=== PATIENT | female | born 2005 | race Caucasian/White ===

== ENCOUNTER 2023-08-06 21:48 | Inpatient (IN) | payer MEDICAID ==
[~2023-08-06] VITALS: Ht 175.3 cm; Wt 67.7 kg
[2023-08-06 22:47] LABS: BILIRUBIN,URINE NEGATIVE (Neg); CLARITY,URINE SLIGHTLY CLOUDY (Clear); COLOR,URINE YELLOW (Yellow); GLUCOSE, URINE NEGATIVE (Neg); KETONES,URINE TRACE mg/dl (Neg); LEUKOCYTE ESTERASE ,URINE NEGATIVE (Neg); NITRITES, URINE NEGATIVE (Neg); OCCULT BLOOD,URINE SMALL (Neg); PROTEIN,URINE NEGATIVE (Neg); UROBILINOGEN,URINE 0.2 E.U/dL (0.2-1.0)
[2023-08-06 22:48] LABS: URINE HCG NEGATIVE (NEG)
[2023-08-06 22:55] LABS: UA COLLECTION TYPE VOIDED
[2023-08-06 22:56] LABS: SQUAMOUS EPITHELIAL CELL,UR MANY /LPF (FEW)
[2023-08-06 22:57] LABS: BACTERIA,URINE 2+ /HPF (Neg); WBC,URINE 0-4 /HPF (0-4)
[2023-08-06 23:01] LABS: URINE AMPHETAMINE SCREEN NEGATIVE (Neg); URINE BARBITUATE SCREEN NEGATIVE (Neg); URINE BENZODIAZEPINES SCREEN NEGATIVE (Neg); URINE CANNABINOID SCREEN NEGATIVE (Neg); URINE COCAINE SCREEN NEGATIVE (Neg); URINE METHADONE SCREEN NEGATIVE (Neg); URINE OPIATE SCREEN NEGATIVE (Neg); URINE PHENCYCLIDINE SCREEN NEGATIVE (Neg)
[2023-08-06 23:25] LABS: BASOPHILS % (AUTO) 0.6 % (0-1); EOSINOPHILS # (AUTO) 0.1 X10'3 (0-0.9); EOSINOPHILS % (AUTO) 1.2 % (0-6); HEMATOCRIT 40.2 % (35.0-45.0); HEMOGLOBIN 13.6 g/dl (12.0-16.0); LYMPHOCYTES # (AUTO) 1.8 X10'3 (1.1-4.8); LYMPHOCYTES % (AUTO) 30.9 % (21-51); MEAN CORPUSCULAR HGB CONC 33.8 g/dL (33.0-36.5); MEAN CORPUSCULAR VOLUME 94.6 FL (78-98); MONOCYTES # (AUTO) 0.5 X10'3 (0-0.9); MONOCYTES % (AUTO) 8.3 % (2-12); NEUTROPHILS # (AUTO) 3.5 X10'3 (1.8-7.7); PLATELET COUNT 215 X10'3 (140-440); RED BLOOD COUNT 4.25 X10'6 (4.20-5.60); WHITE BLOOD COUNT 5.9 X10'3 (4.5-11.0)
[2023-08-06 23:53] LABS: ALBUMIN 3.8 G/DL (3.4-5.0); ANION GAP 9 (8-16); BLOOD UREA NITROGEN 9 MG/DL (7-18); CALCIUM 8.6 MG/DL (8.5-10.1); CHLORIDE 106 MMOL/L (99-107); CREATININE 0.82 MG/DL (0.40-0.90); ETHANOL < 10 MG/DL (<10); GLUCOSE 96 MG/DL (70-104); POTASSIUM 3.2 MMOL/L (3.5-5.1); SODIUM 142 MMOL/L (135-145); THYROID STIMULATING HORMONE 3.08 ulU/ml (0.34-4.50); TOTAL CARBON DIOXIDE 26.8 MMOL/L (24-32); eCRCL 95 ML/MIN; eGFR 89 ML/MIN
[2023-08-07] MEDS ORDERED: BUPR-317 PO (11:17)
[2023-08-07] MEDS ORDERED: LAMO25TA5 PO (11:17)
[2023-08-07] MEDS ORDERED: BUSP7.5T5 PO (11:17)
[2023-08-07] MEDS ORDERED: DICL100G59 TOP (11:17)
[2023-08-07] MEDS: nicotine 21mg patch - 24 hr TD STA (11:37)
[2023-08-07] MEDS ORDERED: DICLOFENAC SODIUM 1% gel 1 APPLIC APPLIC TP SCH (11:50)
[2023-08-07] MEDS ORDERED: loperamide 2mg capsule PO PRN (16:15)
[2023-08-07] MEDS ORDERED: mag hydrox/Alum hydrox/simeth 30ml oral suspension PO PRN (16:15)
[2023-08-07] MEDS ORDERED: magnesium hydroxide 30ml (MOM) UD suspension PO PRN (16:15)
[2023-08-07] MEDS ORDERED: acetaminophen 325mg tablet PO PRN (16:15)
[2023-08-07 16:30] VITALS: BP 112/75; PULSE 79; RESP 16; TEMP 99.8; O2SAT 99
[2023-08-07 16:57] VITALS: RESP 16; O2SAT 99
[2023-08-07 19:36] VITALS: BP 110/67; PULSE 65; RESP 18; TEMP 98.1; O2SAT 100
[2023-08-08 07:20] VITALS: RESP 16; O2SAT 100
[2023-08-08] MEDS: lamoTRIgine 25mg tablet PO SCH (07:25)
[2023-08-08] MEDS: nicotine 21mg patch - 24 hr TD SCH (07:26)
[2023-08-08] MEDS: busPIRone 15mg tablet PO SCH (07:26)
[2023-08-08] MEDS: buPROPion SR 150mg tablet PO SCH (07:33)
[2023-08-08 07:57] LABS: CHOL/HDL RATIO 1.9 (0.00-4.99); CHOLESTEROL 119 MG/DL (0-200); HDL CHOLESTEROL 63 MG/DL (35-60); LDL CHOLESTEROL 47 MG/DL (50-100); TRIGLYCERIDES 42 MG/DL (20-135)
[2023-08-08 08:00] VITALS: BP 106/75; PULSE 85; RESP 16; TEMP 98.1; O2SAT 100
[2023-08-08 08:15] LABS: HEMOGLOBIN A1C 5.1 % (4.5-6.2)
[2023-08-08] MEDS: LORazepam 0.5 MG tablet PO PRN (12:01)
[2023-08-08] MEDS ORDERED: acetaminophen 325mg tablet PO PRN ×2 (12:45)
[2023-08-08] MEDS ORDERED: morphine 2 MG/ML inj. syringe IV PRN (12:45)
[2023-08-08] MEDS ORDERED: metoclopramide 5 mg/ml inj IV PRN (12:45)
[2023-08-08] MEDS ORDERED: ondansetron 4mg rapidly disintigrating tab PO PRN (12:45)
[2023-08-08] MEDS ORDERED: ondansetron/PF 4mg/2ml inj IV PRN (12:45)
[2023-08-08] MEDS ORDERED: diphenhydrAMINE 25mg capsule PO PRN (12:45)
[2023-08-08] MEDS ORDERED: HYDROcodone/acetaminophen 5mg/325mg tablet PO PRN (12:45)
[2023-08-08] MEDS ORDERED: mag hydrox/Alum hydrox/simeth 30ml oral suspension PO PRN (12:45)
[2023-08-08] MEDS ORDERED: magnesium hydroxide 30ml (MOM) UD suspension PO PRN (12:45)
[2023-08-08] MEDS ORDERED: potassium Cl 20 mEq SR tablet PO PRN ×2 (12:45)
[2023-08-08] MEDS ORDERED: diphenhydrAMINE 50 mg/ml inj IV PRN (12:45)
[2023-08-08] MEDS ORDERED: ringers solution, lacted 1,000 ML IV ONE (13:00)
[2023-08-08 13:52] LABS: MAGNESIUM 2.1 MG/DL (1.5-2.4); PHOSPHORUS 5.1 MG/DL (2.3-4.5); POTASSIUM 4.3 MMOL/L (3.5-5.1); PRO BRAIN NATRIURETIC PEPTIDE 113 PG/ML (0-125)
[2023-08-08 19:00] VITALS: RESP 21; O2SAT 100
[2023-08-08 19:33] VITALS: BP 106/75; PULSE 84; RESP 21; TEMP 97.8; O2SAT 100
[2023-08-08 19:40] VITALS: BP 110/71; PULSE 84; RESP 21; TEMP 97.8; O2SAT 100
[2023-08-08] MEDS: K and/or MAG REPLACEMENT MC SCH (20:00)
[2023-08-08] MEDS: traZODone 50mg tablet PO PRN (20:39)
[2023-08-08] MEDS: docusate sod 100mg capsule PO SCH (20:39)
[2023-08-08] MEDS ORDERED: temazepam 15mg capsule PO PRN (21:00)
[2023-08-09 07:25] VITALS: RESP 16; O2SAT 99
[2023-08-09] MEDS: acetaminophen 325mg tablet PO PRN (07:38)
[2023-08-09 08:00] VITALS: BP 98/64; PULSE 82; RESP 12; TEMP 99.1; O2SAT 99
[2023-08-09] MEDS: buPROPion SR 100mg tab PO SCH (14:14)
[2023-08-09] MEDS: ibuprofen 200mg tablet PO PRN (17:04)
[2023-08-09] MEDS: LORazepam 1 MG tablet PO ONE (17:55)
[2023-08-09 19:00] VITALS: RESP 18; O2SAT 100
[2023-08-09 20:23] VITALS: BP 105/60; PULSE 88; RESP 18; TEMP 98.7; O2SAT 100
[2023-08-09] MEDS: traZODone 50mg tablet PO PRN (21:23)
[2023-08-10 07:00] VITALS: BP 111/68; PULSE 93; RESP 16; TEMP 98; O2SAT 99
[2023-08-10] MEDS: busPIRone 15mg tablet PO SCH (08:05)
[2023-08-10 08:42] LABS: APTT 27 SECONDS (22-32); PROTHROMBIN TIME 10.9 SECONDS (9.0-12.0)
[2023-08-10 08:53] LABS: MAGNESIUM 1.8 MG/DL (1.5-2.4); POTASSIUM 4.2 MMOL/L (3.5-5.1)
[2023-08-10] MEDS: LORazepam 1 MG tablet PO ONE (09:59)
[2023-08-10 19:00] VITALS: BP 123/69; PULSE 94; RESP 16; TEMP 98; O2SAT 98
[2023-08-11 07:00] VITALS: RESP 16; O2SAT 99
[2023-08-11 08:00] VITALS: BP 96/58; PULSE 92; RESP 16; TEMP 98.8; O2SAT 99
[2023-08-11 10:12] LABS: ALBUMIN 3.7 G/DL (3.4-5.0); ANION GAP 7 (8-16); BLOOD UREA NITROGEN 8 MG/DL (7-18); BUN/CREATININE RATIO 10.3 (10.0-20.0); CALCIUM 9.2 MG/DL (8.5-10.1); CHLORIDE 107 MMOL/L (99-107); CREATININE 0.78 MG/DL (0.40-0.90); GLUCOSE 73 MG/DL (70-104); MAGNESIUM 1.9 MG/DL (1.5-2.4); POTASSIUM 4.2 MMOL/L (3.5-5.1); SODIUM 143 MMOL/L (135-145); TOTAL CARBON DIOXIDE 29.4 MMOL/L (24-32); eCRCL 116 ML/MIN; eGFR > 90 ML/MIN
[2023-08-11] MEDS: LORazepam 1 MG tablet PO ONE (13:08)
[2023-08-11 19:00] VITALS: RESP 16; O2SAT 100
[2023-08-11 19:30] VITALS: BP 104/68; PULSE 93; RESP 16; TEMP 99.9; O2SAT 100
[2023-08-11] MEDS: busPIRone 15mg tablet PO SCH (20:32)
[2023-08-11] MEDS: LORazepam 0.5 MG tablet PO PRN (20:32)
[2023-08-11 20:38] VITALS: RESP 16; O2SAT 100
[2023-08-12 07:00] VITALS: RESP 16; O2SAT 98
[2023-08-12 07:30] VITALS: BP 96/57; PULSE 90; RESP 16; TEMP 98.8; O2SAT 98
[2023-08-12] MEDS: lithium carbonate 150mg capsule PO SCH (08:37)
[2023-08-12 09:38] LABS: MAGNESIUM 1.8 MG/DL (1.5-2.4)
[2023-08-12] MEDS: hydrOXYzine 25 MG tablet PO PRN (11:28)
[2023-08-12] MEDS: LIDOcaine 5% patch TP SCH (13:53)
[2023-08-12 19:10] VITALS: BP 110/61; PULSE 91; RESP 16; TEMP 97.1; O2SAT 100
[2023-08-12] MEDS: busPIRone 15mg tablet PO SCH (20:44)
[2023-08-12] MEDS: traZODone 50mg tablet PO ONE (22:25)
[2023-08-13 07:00] VITALS: RESP 16; O2SAT 98
[2023-08-13 08:00] VITALS: BP 100/47; PULSE 75; RESP 16; TEMP 99.4; O2SAT 98
[2023-08-13] MEDS ORDERED: buPROPion SR 100mg tab PO SCH (08:00)
[2023-08-13] MEDS: buPROPion SR 150mg tablet PO SCH (08:31)
[2023-08-13] MEDS: busPIRone 5mg tablet PO SCH (08:31)
[2023-08-13] MEDS: LORazepam 1 MG tablet PO ONE ×2 (11:26→21:17)
[2023-08-13 19:30] VITALS: BP 115/65; PULSE 102; RESP 17; TEMP 98.7; O2SAT 99
[2023-08-13] MEDS: traZODone 50mg tablet PO PRN (20:19)
[2023-08-13] MEDS: LORazepam 0.5 MG tablet PO PRN (20:23)
[2023-08-14 07:00] VITALS: RESP 16; O2SAT 99
[2023-08-14 08:00] VITALS: BP 102/64; PULSE 74; RESP 12; TEMP 98.7; O2SAT 98
[2023-08-14] MEDS: lamoTRIgine 100mg tablet PO SCH (08:59)
[2023-08-14] MEDS: lithium carbonate 150mg capsule PO SCH (08:59)
[2023-08-14] MEDS: NICOTINE POLACRILEX 2 MG LOZENGE BC PRN (09:06)
[2023-08-14 19:00] VITALS: BP 111/76; PULSE 99; RESP 16; TEMP 97.6; O2SAT 100
[2023-08-14] MEDS: LORazepam 1 MG tablet PO ONE (20:45)
[2023-08-14] MEDS: traZODone 150mg tablet PO ONE (22:13)
[2023-08-15 07:00] VITALS: RESP 16; O2SAT 96
[2023-08-15 07:30] VITALS: BP 98/57; PULSE 66; RESP 16; TEMP 98.9; O2SAT 96
[2023-08-15 19:00] VITALS: RESP 18; O2SAT 100
[2023-08-15 20:00] VITALS: BP 112/68; PULSE 105; RESP 18; TEMP 97.8; O2SAT 100
[2023-08-15 20:04] VITALS: RESP 18; O2SAT 100
[2023-08-15] MEDS: traZODone 150mg tablet PO PRN (21:37)
[2023-08-16 08:00] VITALS: BP 101/62; PULSE 80; RESP 16; TEMP 98.4; O2SAT 96
[2023-08-16] MEDS: buPROPion SR 150mg tablet PO SCH (08:24)
[2023-08-16 19:00] VITALS: BP 102/58; PULSE 110; RESP 20; TEMP 98.7; O2SAT 99
[2023-08-17 07:00] VITALS: BP 90/47; PULSE 69; RESP 16; TEMP 99.3; O2SAT 98
[2023-08-17] MEDS: multivitamins, therapeutics tablet PO SCH (07:59)
[2023-08-17] MEDS: buPROPion 100mg tablet PO SCH (08:00)
[2023-08-17] MEDS: busPIRone 5mg tablet PO SCH (13:45)
[2023-08-17] MEDS: hydrOXYzine 25 MG tablet PO PRN (18:29)
[2023-08-17 19:35] VITALS: BP 123/71; PULSE 79; RESP 16; TEMP 97.9; O2SAT 99
[2023-08-18 07:00] VITALS: BP 90/56; PULSE 91; RESP 12; TEMP 98.9; O2SAT 99
[2023-08-18 19:00] VITALS: BP 95/57; PULSE 100; RESP 20; TEMP 99.6; O2SAT 99
[2023-08-19 07:00] VITALS: BP 102/66; PULSE 76; RESP 16; TEMP 97.8; O2SAT 96
[2023-08-19 19:00] VITALS: RESP 12; O2SAT 99
[2023-08-19] MEDS: busPIRone 5mg tablet PO SCH (20:10)
[2023-08-19 20:46] VITALS: BP 107/61; PULSE 80; RESP 12; TEMP 98.3; O2SAT 99
[2023-08-20 07:00] VITALS: RESP 16; O2SAT 97
[2023-08-20 08:00] VITALS: BP 93/57; PULSE 78; RESP 16; TEMP 98.8; O2SAT 97
[2023-08-20 10:30] LABS: ALBUMIN 3.6 G/DL (3.4-5.0); ANION GAP 12 (8-16); BLOOD UREA NITROGEN 9 MG/DL (7-18); BUN/CREATININE RATIO 9.6 (10.0-20.0); CALCIUM 8.9 MG/DL (8.5-10.1); CHLORIDE 104 MMOL/L (99-107); CREATININE 0.94 MG/DL (0.40-0.90); GLUCOSE 103 MG/DL (70-104); POTASSIUM 4.2 MMOL/L (3.5-5.1); SODIUM 142 MMOL/L (135-145); TOTAL CARBON DIOXIDE 26.2 MMOL/L (24-32); eCRCL 99 ML/MIN; eGFR 76 ML/MIN
[2023-08-20 19:00] VITALS: RESP 16; O2SAT 100
[2023-08-20 19:12] VITALS: BP 107/71; PULSE 73; RESP 16; TEMP 99.1; O2SAT 100
[2023-08-21 07:00] VITALS: BP 91/47; PULSE 79; RESP 16; TEMP 98.2; O2SAT 99
[2023-08-21] MEDS: ESCITALOPRAM 10 mg tablet 10 MG TABLET PO SCH (07:39)
[2023-08-21 19:00] VITALS: BP 103/72; PULSE 86; RESP 14; TEMP 98.8; O2SAT 100
[2023-08-22 07:30] VITALS: BP 98/55; PULSE 80; RESP 12; TEMP 97.8; O2SAT 98
[2023-08-22 19:46] VITALS: BP 113/68; PULSE 83; RESP 18; TEMP 98.5; O2SAT 100
[2023-08-23 07:00] VITALS: BP 96/52; PULSE 74; RESP 12; TEMP 98.3; O2SAT 97
[2023-08-23 19:00] VITALS: RESP 12; O2SAT 99
[2023-08-23 19:57] VITALS: BP 107/68; PULSE 99; RESP 12; TEMP 99.2; O2SAT 97
[2023-08-24 07:00] VITALS: RESP 16; O2SAT 96
[2023-08-24 08:00] VITALS: PULSE 83; RESP 16; TEMP 98.8; O2SAT 96
[2023-08-24] MEDS ORDERED: MULT-25 PO (14:04)
[2023-08-24] MEDS ORDERED: HYDR-3686 PO (14:04)
[2023-08-24] MEDS ORDERED: DOCU100C40 PO (14:04)
[2023-08-24] MEDS ORDERED: BUSP15TA7 PO (14:04)
[2023-08-24] MEDS ORDERED: DICL20GE TP (14:04)
[2023-08-24] MEDS ORDERED: BUPR200T27 PO (14:04)
[2023-08-24] MEDS ORDERED: ESCI5TAB17 PO (14:04)
[2023-08-24] MEDS ORDERED: LIT300C PO (14:04)
[2023-08-24] MEDS ORDERED: LAMO100T PO (14:04)
[2023-08-24] MEDS ORDERED: NICO-687 TD (14:04)
[2023-08-24] MEDS ORDERED: Lorazepam PO (14:04)
[2023-08-24] MEDS ORDERED: TRAZ-251 PO (14:04)
[2023-08-24] MEDS ORDERED: LORA-268 PO (14:06)
== END 2023-08-24 15:15 | disposition home or self-care (01) | DRG 751 ==
LOC: ER 21:48 → ED HOLD 08-07 12:00 → ADULT MH 08-07 16:08
PROVIDERS: ADMIT Psychiatry & Neurology Psychiatry; ATTEND Psychiatry & Neurology Psychiatry
PROC: GZHZZZZ Group Psychotherapy (ICD-10-PCS; principal; 2023-08-08)
PROC: GZ51ZZZ Individual Psychotherapy, Behavioral (ICD-10-PCS; 2023-08-12)
PROC: GZ56ZZZ Individual Psychotherapy, Supportive (ICD-10-PCS; 2023-08-15)
DX: F33.2 Major depressive disorder, recurrent severe without psychotic features (principal); R45.851 Suicidal ideations; F43.12 Post-traumatic stress disorder, chronic; F42.9 Obsessive-compulsive disorder, unspecified; Z20.822 Contact with and (suspected) exposure to COVID-19; F17.200 Nicotine dependence, unspecified, uncomplicated; F10.21 Alcohol dependence, in remission; F16.90 Hallucinogen use, unspecified, uncomplicated; F60.3 Borderline personality disorder; E87.6 Hypokalemia; J45.909 Unspecified asthma, uncomplicated; E86.0 Dehydration; M54.9 Dorsalgia, unspecified; R82.71 Bacteriuria; Z79.899 Other long term (current) drug therapy
CPT/HCPCS: 36415; 80048; 80061; 80178; 80305; 80320; 81001; 81025; 83036; 83735; 83880; 84100; 84132; 84443; 85025; 85610; 85730; 87081; 87811; 99285; A6258; Q0177